=== PATIENT | female | born 1960 | race African-American/Black ===

== ENCOUNTER 2020-10-30 20:11 | Emergency (ER) | payer MEDICAID ==
[~2020-10-30] VITALS: Ht 157.5 cm; Wt 96.0 kg
[2020-10-30 21:08] VITALS: BP 144/95
[2020-10-30] MEDS ORDERED: IBUPROFEN 600MG TABLET PO ONE (23:30)
[2020-10-31] MEDS ORDERED: LIDOCAINE HCL/PF 1% 10 MG/ML 5ML VIAL IJ ONE (00:15)
[2020-10-31] MEDS ORDERED: IBUP-2029 MT (04:05)
[2020-10-31] MEDS ORDERED: CEPH500C2 MT (04:05)
== END 2020-10-31 05:10 | disposition home or self-care (01) ==
LOC: ER 20:11
DX: S91.342A Puncture wound with foreign body, left foot, initial encounter (principal); M79.672 Pain in left foot; H40.9 Unspecified glaucoma; W22.8XXA Striking against or struck by other objects, initial encounter; Y93.9 Activity, unspecified; Y92.9 Unspecified place or not applicable
CPT/HCPCS: 73620; 99283; J3490; Z7610

== ENCOUNTER 2025-03-13 01:56 | Inpatient (IN) | payer MEDICAID ==
[~2025-03-13] VITALS: Ht 167.6 cm; Wt 104.3 kg
[2025-03-13] VITALS (17 sets, daily range): BP systolic 101–172; BP diastolic 72–123; PULSE 65–129; RESP 17–34; TEMP 36.5848–36.8; O2SAT 90–100
[~2025-03-13 01:56] MED LIST: ALBU90AE INH; ASPI-1497 MT; ATOR20TA MT; AZIT500T MT; CARV6.2548 MT; EMPA10TA PO; FERR-63 PO; FLUT1DIS3 INH; FURO-151 MT; GUAI-741 PO; METH4TAB95 MT; SACU1TAB7 PO; SITA1TAB2 MT; SPIR25TA6 PO
[2025-03-13] MEDS: IPRATROPIUM BROMIDE (0.02%) 0.5MG/2.5ML NEB HHN ONE (02:14)
[2025-03-13] MEDS: ALBUTEROL (0.083%) 2.5MG/3ML NEB HHN ONE (02:15)
[2025-03-13 02:28] LABS: BASOPHILS % 0.7 % (0.0-2.0); EOSINOPHILS % 1.2 % (0.0-5.0); HEMATOCRIT. 36.1 % (36.0-48.0); HEMOGLOBIN. 11.2 g/dL (12.0-16.0); LYMPHOCYTES % 28.8 % (20.0-50.0); MEAN PLATELET VOLUME 8.6 fl (7.4-10.4); MONOCYTES % 8.9 % (2.0-8.0); NEUTROPHILS % 60.4 % (40.0-76.0); PLATELET 168 x1000/uL (130-400); RED BLOOD CELL COUNT 4.86 mill/uL (4.2-5.4); RED CELL DISTRIBUTION WIDTH 15.4 % (11.6-14.6)
[2025-03-13 02:39] LABS: CREATININE 1.0 mg/dL (0.6-1.0)
[2025-03-13 02:40] LABS: UREA NITROGEN BLOOD 13 mg/dL (9-23)
[2025-03-13 02:41] LABS: ASPARTATE AMINOTRANSFERASE 151 IU/L (<34); INR 1.0; TROPONIN I HIGH SENSITIVITY 23 ng/L (3.0-34)
[2025-03-13 02:42] LABS: BILIRUBIN DIRECT 0.2 mg/dL (<=3.0); BILIRUBIN TOTAL 0.6 mg/dL (0.1-1.0); PROTEIN TOTAL 6.2 g/dL (6.0-8.3)
[2025-03-13] MEDS: FUROSEMIDE 40MG/4ML VIAL IVP SCH ×3 (03:11→22:18)
[2025-03-13] MEDS: NITROGLYCERIN OINT 1GM/INCH UDPKT TD SCH (03:12)
[2025-03-13 05:03] LABS: INFLUENZA TYPE A Presumptive Negative (Pres. Neg.)
[2025-03-13 05:08] LABS: INFLUENZA TYPE B Presumptive Negative (Pres. Neg.)
[2025-03-13 05:09] LABS: RESPIRATORY SYNCYTIAL VIRUS Not Detected (Not Detectd)
[2025-03-13 08:30] LABS: BG BASE EXCESS 2.8 mmol/L (-2.0-3.0); BG CARBOXYHEMOGLOBIN 2.9 % (0.5-1.5); BG DEOXYHEMOGLOBIN 3.3 % (0.0-5.0); BG FRACTION INSPIRED OXYGEN 30; BG HCO3 ACT 27.8 mmol/L (21.0-28.0); BG METHEMOGLOBIN 0.3 % (0.5-1.5); BG OXYGEN SATURATION 96.6 % (94.0-98.0); BG OXYHEMOGLOBIN 93.5 % (94.0-98.0); BG PCO2 44.4 mmHg (32.0-45.0); BG PH 7.414 (7.350-7.450); BG PO2 78.7 mmHg (83.0-108.0); BG SAMPLE SITE LEFT RADIAL; BG TOTAL HEMOGLOBIN 11.7 g/dL (12.0-16.0); BG TOTAL RESPIRATORY RATE 23 b/min; BG VENT MODE MASK - BIPAP; BG VENT RATE 18.0 set
[2025-03-13] MEDS ORDERED: ONDANSETRON HCL 4MG/2ML INJ IV PRN (10:45)
[2025-03-13] MEDS ORDERED: HYDRALAZINE 20MG/ML VIAL IV PRN (10:45)
[2025-03-13] MEDS ORDERED: ACETAMINOPHEN 325MG TABLET PO PRN ×2 (10:45)
[2025-03-13] MEDS ORDERED: DIPHENHYDRAMINE 50MG/ML VIAL IV PRN (10:45)
[2025-03-13] MEDS ORDERED: MAGNESIUM/ALUMINUM HYDROXIDE/SIMETHICONE 30ML UDC PO PRN (10:45)
[2025-03-13] MEDS: IPRATROPIUM/ALBUTEROL 0.5-3(2.5)MG/3ML NEB HHN SCH (14:10)
[2025-03-13] MEDS: METHYLPREDNISOLONE SOD SUCC 125MG/2ML (ACT-O-VIAL) ONE (14:53)
[2025-03-13] MEDS: ENOXAPARIN 40MG/0.4ML SYR SUBCUT SCH (14:54)
[2025-03-13] MEDS: CLONIDINE 0.1MG TABLET PO PRN (14:55)
[2025-03-13] MEDS: SODIUM CHLORIDE 0.9% 3ML FLUSH IVF SCH (14:57)
[2025-03-13 15:22] LABS: BG BASE EXCESS -3.9 mmol/L (-2.0-3.0); BG CARBOXYHEMOGLOBIN 0.7 % (0.5-1.5); BG DEOXYHEMOGLOBIN 4.6 % (0.0-5.0); BG FRACTION INSPIRED OXYGEN 50; BG HCO3 ACT 24.6 mmol/L (21.0-28.0); BG METHEMOGLOBIN 0.1 % (0.5-1.5); BG OXYGEN SATURATION 95.4 % (94.0-98.0); BG OXYHEMOGLOBIN 94.6 % (94.0-98.0); BG PCO2 60.2 mmHg (32.0-45.0); BG PH 7.229 (7.350-7.450); BG PO2 90.2 mmHg (83.0-108.0); BG SAMPLE SITE LEFT RADIAL; BG TOTAL HEMOGLOBIN 13.6 g/dL (12.0-16.0); BG TOTAL RESPIRATORY RATE 37 b/min; BG VENT MODE MASK - BIPAP; BG VENT RATE 18.0 set
[2025-03-13] MEDS: METHYLPREDNISOLONE SOD SUCC 40MG/ML (ACT-O-VIAL) IV SCH (17:50)
[2025-03-13 18:45] LABS: BG BASE EXCESS 0.9 mmol/L (-2.0-3.0); BG CARBOXYHEMOGLOBIN 0.7 % (0.5-1.5); BG DEOXYHEMOGLOBIN 9.8 % (0.0-5.0); BG FRACTION INSPIRED OXYGEN 60; BG HCO3 ACT 25.5 mmol/L (21.0-28.0); BG METHEMOGLOBIN 0.0 % (0.5-1.5); BG OXYGEN SATURATION 90.1 % (94.0-98.0); BG OXYHEMOGLOBIN 89.5 % (94.0-98.0); BG PCO2 40.7 mmHg (32.0-45.0); BG PH 7.415 (7.350-7.450); BG PO2 56.0 mmHg (83.0-108.0); BG SAMPLE SITE LEFT RADIAL; BG TOTAL HEMOGLOBIN 13.5 g/dL (12.0-16.0); BG TOTAL RESPIRATORY RATE 23 b/min; BG VENT MODE MASK - BIPAP; BG VENT RATE 18.0 set
[2025-03-13 20:28] LABS: *AMPHETAMINES SCREEN URINE NEGATIVE (NEGATIVE); *BARBITURATES SCREEN URINE NEGATIVE (NEGATIVE); *BENZODIAZEPINES SCREEN URINE NEGATIVE (NEGATIVE)
[2025-03-13 20:29] LABS: *COCAINE SCREEN URINE PRESUMPTIVE POSITIVE (NEGATIVE); CANNABINOID URINE SCREEN NEGATIVE (NEGATIVE); ECSTASY MDMA SCREEN URINE NEGATIVE (NEGATIVE); METHADONE URINE SCREEN NEGATIVE (NEGATIVE); OPIATES URINE SCREEN NEGATIVE (NEGATIVE); PHENCYCLIDINE URINE SCREEN NEGATIVE (NEGATIVE)
[2025-03-13 20:34] LABS: CLARITY URINE CLEAR (CLEAR); COLOR URINE YELLOW (YELLOW); GLUCOSE URINE NEGATIVE (NEGATIVE); KETONES URINE NEGATIVE (NEGATIVE); LEUKOCYTE ESTERASE URINE NEGATIVE (NEGATIVE); NITRITE URINE NEGATIVE (NEGATIVE); OCCULT BLOOD URINE NEGATIVE (NEGATIVE); PH URINE 6.5 (4.5-8.0); PROTEIN URINE TRACE (NEGATIVE); SPECIFIC GRAVITY URINE 1.016 (1.005-1.030); UROBILINOGEN URINE 1.0 E.U./dL (0.2-1.0)
[2025-03-13 20:47] LABS: BACTERIA URINE TRACE; RBC URINE 0-2 /hpf (0-2); SQUAMOUS EPITHELIAL CELL URINE FEW /lpf (RARE/1+); WBC URINE 0-2 /hpf (0-2)
[2025-03-13] MEDS: ATORVASTATIN CALCIUM 20MG TABLET PO SCH (21:00)
[2025-03-13] MEDS: PANTOPRAZOLE 40MG DR TABLET PO SCH (21:00)
[2025-03-13] MEDS ORDERED: IPRATROPIUM/ALBUTEROL 0.5-3(2.5)MG/3ML NEB HHN PRN (21:15)
[2025-03-14] VITALS (64 sets, daily range): BP systolic 91–146; BP diastolic 53–85; PULSE 53–92; RESP 11–25; TEMP 36.7–37.1; O2SAT 93–100
[2025-03-14 06:29] LABS: BASOPHILS % 0.1 % (0.0-2.0); EOSINOPHILS % 0.0 % (0.0-5.0); HEMATOCRIT. 39.0 % (36.0-48.0); HEMOGLOBIN. 12.2 g/dL (12.0-16.0); LYMPHOCYTES % 13.2 % (20.0-50.0); MEAN PLATELET VOLUME 8.9 fl (7.4-10.4); MONOCYTES % 2.8 % (2.0-8.0); NEUTROPHILS % 83.9 % (40.0-76.0); PLATELET 187 x1000/uL (130-400); RED BLOOD CELL COUNT 5.18 mill/uL (4.2-5.4); RED CELL DISTRIBUTION WIDTH 14.9 % (11.6-14.6)
[2025-03-14 06:51] LABS: CREATININE 1.0 mg/dL (0.6-1.0)
[2025-03-14 06:52] LABS: UREA NITROGEN BLOOD 13 mg/dL (9-23)
[2025-03-14 06:54] LABS: PHOSPHORUS 4.4 mg/dL (2.5-4.9)
[2025-03-14] MEDS: SPIRONOLACTONE 25MG TABLET PO SCH (08:38)
[2025-03-14] MEDS: EMPAGLIFLOZIN 10MG TABLET PO SCH (08:39)
[2025-03-14] MEDS: GUAIFENESIN 600MG ER TABLET PO SCH (08:39)
[2025-03-14] MEDS: ASPIRIN 81MG EC TABLET PO SCH (08:53)
[2025-03-14 09:11] LABS: BG BASE EXCESS 1.6 mmol/L (-2.0-3.0); BG CARBOXYHEMOGLOBIN 1.6 % (0.5-1.5); BG DEOXYHEMOGLOBIN 4.7 % (0.0-5.0); BG FRACTION INSPIRED OXYGEN 30; BG HCO3 ACT 26.4 mmol/L (21.0-28.0); BG METHEMOGLOBIN 0.1 % (0.5-1.5); BG OXYGEN SATURATION 95.2 % (94.0-98.0); BG OXYHEMOGLOBIN 93.6 % (94.0-98.0); BG PCO2 42.0 mmHg (32.0-45.0); BG PH 7.416 (7.350-7.450); BG PO2 73.4 mmHg (83.0-108.0); BG SAMPLE SITE LEFT RADIAL; BG TOTAL HEMOGLOBIN 12.4 g/dL (12.0-16.0); BG VENT MODE MASK - BIPAP; BG VENT RATE 14.0 set
[2025-03-14 14:27] LABS: BG BASE EXCESS 0.4 mmol/L (-2.0-3.0); BG CARBOXYHEMOGLOBIN 0.5 % (0.5-1.5); BG DEOXYHEMOGLOBIN 6.8 % (0.0-5.0); BG FLOW(L/min) 3.50 L/min; BG FRACTION INSPIRED OXYGEN 34; BG HCO3 ACT 24.9 mmol/L (21.0-28.0); BG METHEMOGLOBIN 0.0 % (0.5-1.5); BG OXYGEN SATURATION 93.2 % (94.0-98.0); BG OXYHEMOGLOBIN 92.7 % (94.0-98.0); BG PCO2 39.8 mmHg (32.0-45.0); BG PH 7.414 (7.350-7.450); BG PO2 66.3 mmHg (83.0-108.0); BG SAMPLE SITE LEFT RADIAL; BG TOTAL HEMOGLOBIN 13.8 g/dL (12.0-16.0); BG VENT MODE NASAL CANNULA
[2025-03-14] MEDS: PROMETHAZINE/DEXTROMETHORPHAN 6.25-15MG/5ML PO PRN (19:08)
[2025-03-15] VITALS (25 sets, daily range): BP systolic 72–135; BP diastolic 41–82; PULSE 63–94; RESP 16–30; TEMP 36.3–37; O2SAT 91–100
[2025-03-15] MEDS: ZOLPIDEM TARTRATE 5MG TABLET PO PRN (00:37)
[2025-03-15 06:39] LABS: BASOPHILS % 0.5 % (0.0-2.0); EOSINOPHILS % 0.0 % (0.0-5.0); HEMATOCRIT. 36.1 % (36.0-48.0); HEMOGLOBIN. 11.5 g/dL (12.0-16.0); LYMPHOCYTES % 12.2 % (20.0-50.0); MEAN PLATELET VOLUME 9.0 fl (7.4-10.4); MONOCYTES % 6.2 % (2.0-8.0); NEUTROPHILS % 81.1 % (40.0-76.0); PLATELET 201 x1000/uL (130-400); RED BLOOD CELL COUNT 4.86 mill/uL (4.2-5.4); RED CELL DISTRIBUTION WIDTH 14.8 % (11.6-14.6)
[2025-03-15 06:53] LABS: CREATININE 1.0 mg/dL (0.6-1.0)
[2025-03-15 06:54] LABS: UREA NITROGEN BLOOD 18 mg/dL (9-23)
[2025-03-15 06:55] LABS: ASPARTATE AMINOTRANSFERASE 21 IU/L (<34)
[2025-03-15 06:56] LABS: BILIRUBIN TOTAL 0.6 mg/dL (0.1-1.0); PHOSPHORUS 3.1 mg/dL (2.5-4.9); PROTEIN TOTAL 5.9 g/dL (6.0-8.3)
[2025-03-15] MEDS: PREDNISONE 10MG TABLET PO SCH (09:05)
[2025-03-15] MEDS: BUDESONIDE 0.5MG/2ML NEB HHN SCH (13:58)
[2025-03-16] VITALS (8 sets, daily range): BP systolic 95–152; BP diastolic 47–77; PULSE 55–76; RESP 15–21; TEMP 35.7–36.7; O2SAT 96–100
[2025-03-16 09:40] LABS: BG BASE EXCESS 5.0 mmol/L (-2.0-3.0); BG CARBOXYHEMOGLOBIN 1.0 % (0.5-1.5); BG DEOXYHEMOGLOBIN 10.0 % (0.0-5.0); BG HCO3 ACT 29.9 mmol/L (21.0-28.0); BG METHEMOGLOBIN 0.1 % (0.5-1.5); BG OXYGEN SATURATION 89.9 % (94.0-98.0); BG OXYHEMOGLOBIN 88.9 % (94.0-98.0); BG PCO2 44.9 mmHg (32.0-45.0); BG PH 7.441 (7.350-7.450); BG PO2 57.1 mmHg (83.0-108.0); BG SAMPLE SITE LEFT RADIAL; BG TOTAL HEMOGLOBIN 12.9 g/dL (12.0-16.0); BG VENT MODE ROOM AIR
[2025-03-16 14:10] LABS: CREATININE 1.0 mg/dL (0.6-1.0); UREA NITROGEN BLOOD 14 mg/dL (9-23)
[2025-03-17] VITALS: BP 110/62; PULSE 69; RESP 18; TEMP 36.3; O2SAT 98
[2025-03-17 04:00] VITALS: BP 111/48; PULSE 71; RESP 20; TEMP 36.2; O2SAT 99
[2025-03-17 08:00] VITALS: BP 116/66; PULSE 64; RESP 17; TEMP 35.7; O2SAT 96
[2025-03-17 09:32] VITALS: PULSE 82; RESP 16; O2SAT 97
[2025-03-17 12:00] VITALS: BP 101/59; PULSE 79; RESP 18; TEMP 36; O2SAT 96
[2025-03-17] MEDS ORDERED: ALBU90AE INH (14:43)
[2025-03-17] MEDS ORDERED: ASPI-1406 PO (14:43)
[2025-03-17] MEDS ORDERED: ATOR20TA PO (14:43)
[2025-03-17] MEDS ORDERED: EMPA10TA PO (14:43)
[2025-03-17] MEDS ORDERED: BUDE6.9H INH (14:43)
[2025-03-17] MEDS ORDERED: SPIR25TA PO (14:43)
[2025-03-17] MEDS ORDERED: AMLO2.5T2 MT (14:44)
[2025-03-17 16:00] VITALS: BP 109/65; PULSE 96; RESP 18; TEMP 36.1; O2SAT 96
== END 2025-03-17 17:05 | disposition home or self-care (01) | DRG 140 ==
LOC: ER 01:56 → 5EST 02:59 → EDBEDREQTM 03:08 → EDBEDREQ 03:08 → ENRESERV 10:07 → CVICU 20:34 → 6WST 03-15 11:50
PROVIDERS: ADMIT Internal Medicine; ATTEND Internal Medicine
PROC: 5A09357 Assistance with Respiratory Ventilation, Less than 24 Consecutive Hours, Continuous Positive Airway Pressure (ICD-10-PCS; principal; 2025-03-13)
PROC: 5A09357 Assistance with Respiratory Ventilation, Less than 24 Consecutive Hours, Continuous Positive Airway Pressure (ICD-10-PCS; 2025-03-14)
DX: J44.1 Chronic obstructive pulmonary disease with (acute) exacerbation (principal); J96.01 Acute respiratory failure with hypoxia; J18.9 Pneumonia, unspecified organism; I11.0 Hypertensive heart disease with heart failure; I50.22 Chronic systolic (congestive) heart failure; Z59.00 Homelessness unspecified; J44.0 Chronic obstructive pulmonary disease with (acute) lower respiratory infection; R74.01 Elevation of levels of liver transaminase levels; Z68.37 Body mass index [BMI] 37.0-37.9, adult; E66.9 Obesity, unspecified; F19.10 Other psychoactive substance abuse, uncomplicated; E11.9 Type 2 diabetes mellitus without complications; I25.10 Atherosclerotic heart disease of native coronary artery without angina pectoris
CPT/HCPCS: 36415; 36600; 71045; 80048; 80053; 80076; 80305; 80320; 81003; 82375; 82805; 83735; 83880; 84100; 84484; 85025; 87420; 87426; 87804; 93005; 94070; 94640; 94660; 94664; 94760; 97162; 97166; 98960; 99291; A4606; J1650; J1938; J2919; J7512; J7626; G0480